=== PATIENT | female | born 1985 | race American Indian/Alaskan Native ===

== ENCOUNTER 2017-05-07 13:35 | Emergency (ER) | payer BC, OTHER ==
[2017-05-07 13:35] VITALS: BMI 33.0
[2017-05-07 14:10] VITALS: RESP 16; TEMP 98.9
--- NOTE | 2017-05-07 14:14 | ED PDOC ---
Arrival/HPI - General Chief Complaint: Lower Extremity Problem/Injury Time Seen by Provider: 05/07/17 14:13 Historian: Patient - History of Present Illness Narrative History of Present Illness (Text): 05/07/17 14:13 31 y/o female, no significant pmh, allergic to azithromycin, c/o bilateral lower extremity pain with painful rash x 1 week. Pt. stated that she recently recover from a viral URI which her symptoms resolved, been having bilateral lower extremity painful rash for the past 1 week, seen by pmd Dr. Olsen today and advised to come to the ER with possible acute DVT, no fever or chills, admits pain, no palpitation, no rash, no other medical or psychological complaints. Past Medical History - Provider Review Nursing Documentation Reviewed: Yes - Cardiac Hx Cardiac Disorders: No - Pulmonary Hx Respiratory Disorders: Yes Hx Bronchitis: Yes - Neurological Hx Neurological Disorder: No - HEENT Hx HEENT Disorder: No - Renal Hx Renal Disorder: No - Endocrine/Metabolic Hx Endocrine Disorders: No - Hematological/Oncological Hx Blood Disorders: No - Integumentary Hx Dermatological Disorder: No - Musculoskeletal/Rheumatological Hx Musculoskeletal Disorders: No - Gastrointestinal Hx Gastrointestinal Disorders: Yes Hx Gastroesophageal Reflux: Yes Hx Irritable Bowel: Yes - Genitourinary/Gynecological Hx Genitourinary Disorders: No - Psychiatric Hx Psychophysiologic Disorder: No Hx Substance Use: No - Surgical History Other/Comment: BACK SX, L KNEE - Suicidal Assessment Feels Threatened In Home Enviroment: No Family/Social History - Physician Review Nursing Documentation Reviewed: Yes Family/Social History: Unknown Family HX Smoking Status: Never Smoked Hx Alcohol Use: No Hx Substance Use: No Hx Substance Use Treatment: No Allergies/Home Meds Allergies/Adverse Reactions: Allergies azithromycin [From Zithromax] Allergy (Verified 05/07/17 14:02) RASH Review of Systems - Review of Systems Constitutional: absent: Fatigue, Fevers Eyes: absent: Vision Changes ENT: absent: Hearing Changes Respiratory: absent: SOB, Cough Cardiovascular: absent: Chest Pain Gastrointestinal: absent: Abdominal Pain, Nausea, Vomiting Skin: Rash, Skin Lesions. absent: Pruritis, Laceration, Abscess, Ulcer Neurological: absent: Headache, Dizziness Psychiatric: absent: Anxiety, Depression Physical Exam Vital Signs Reviewed: Yes Vital Signs Temp Pulse Resp BP Pulse Ox 05/07/17 17:15 82 16 115/68 100 05/07/17 14:03 98.9 F 106 H 16 125/80 95 Temperature: Afebrile Blood Pressure: Normal Pulse: Tachycardic Respiratory Rate: Normal Appearance: Positive for: Well-Appearing, Non-Toxic Pain Distress: Moderate Mental Status: Positive for: Alert and Oriented X 3 - Systems Exam Head: Present: Atraumatic, Normocephalic Pupils: Present: PERRL Extroacular Muscles: Present: EOMI Conjunctiva: Present: Normal Mouth: Present: Moist Mucous Membranes Neck: Present: Normal Range of Motion Respiratory/Chest: Present: Clear to Auscultation, Good Air Exchange. No: Respiratory Distress, Accessory Muscle Use Cardiovascular: Present: Regular Rate and Rhythm, Normal S1, S2. No: Murmurs Abdomen: Present: Normal Bowel Sounds. No: Tenderness, Distention, Peritoneal Signs, Rebound, Guarding Back: Present: Normal Inspection Upper Extremity: Present: Normal Inspection. No: Cyanosis, Edema Lower Extremity: Present: Normal Inspection. No: Edema Neurological: Present: GCS=15, CN II-XII Intact, Speech Normal Skin: Present: Warm, Dry, Rashes (bilateral calf region visible palpable tender purpura rash noted on the bilateral calf regions including mild dark red with approx. 1.5cm diameter each, no streaking, no ulcers. ), Normal Color Psychiatric: Present: Alert, Oriented x 3, Normal Insight, Normal Concentration Medical Decision Making ED Course and Treatment: 05/07/17 14:31 Differential Dx: cellulitis vs. vasculitis vs. auto immune disease vs. erythema nodusum -labs/esr -Bilateral lower extremitie venuous doppler -IVF/toradol/solumedrol -Observe and reassess 05/07/17 16:55 -Urine hcg is negative -Labs are non-significant with no elevation of wbc except CMP K 3.4 (potassium chloride 20meq po ordered), -Bilateral lower extremities venuous doppler: as per preliminary, no acute DVT -Pain decreased. Pt. has IBS with recurrent oral canker sore, likely inflammatory vs. auto immune. -I discussed with DR. Solis and Dr. Moncho olsen PCP, both evaluated the patient, agreed to do a trial of oral nsaid and steroid to see if the rash will resolved, Dr. Olsen he will see the patient tomorrow as well for grid maker referral. -Discharge home with Prednisone, naproxen, cane, follow up with your own pmd and rhematologist/manager of manufacturing within 2 days, return to the ER for any new or worsening signs or symptoms. - Lab Interpretations Lab Results: 05/07/17 14:35 05/07/17 14:35 Lab Results 05/07/17 14:35: WBC 6.9, RBC 4.04, Hgb 12.2, Hct 37.5, MCV 92.8, MCH 30.2, MCHC 32.5, RDW 14.2, Plt Count 309, MPV 9.4, Gran % 65.6, Lymph % (Auto) 29.3, [place] % (Auto) 4.8, Eos % (Auto) 0.3 L, Baso % (Auto) 0.0, Gran # 4.51, Lymph # (Auto ) 2.0, [place] # (Auto) 0.3, Eos # (Auto) 0.0, Baso # (Auto) 0.00, ESR 112 H 05/07/17 14:35: Sodium 144, Potassium 3.4 L, Chloride 104, Carbon Dioxide 28, Anion Gap 16, BUN 9, Creatinine 0.7, Est GFR ( Amer) > 60, Est GFR (Non- Af Amer) > 60, Random Glucose 99, Calcium 9.9, Total Bilirubin 0.5, AST 21, ALT 18, Alkaline Phosphatase 54, Total Creatine Kinase 74, NT-Pro-B Natriuret Pep 27.9, Total Protein 8.3, Albumin 4.2, Globulin 4.1, Albumin/Globulin Ratio 1.0 L - RAD Interpretation Radiology Orders: 05/07/17 14:26 DUPLEX LOWER EXTRM VEIN BILAT [US] Stat -Bilateral lower extremities venuous doppler: as per preliminary, no acute DVT All Around Gear Machine Operator: Radiologist - Medication Orders Current Medication Orders: Discontinued Medications Sodium Chloride (Sodium Chloride 0.9%) 1,000 mls @ 200 mls/hr IV .Q5H LUAN Last Admin: 05/07/17 14:48 Dose: 200 mls/hr eMAR Start Stop Document 05/07/17 14:48 SE (Rec: 05/07/17 14:48 SE [facility] [id number]) Intravenous Solution Start Date 05/07/17 Start Time 14:48 Ketorolac Tromethamine (Toradol) 30 mg IVP STAT STA Stop: 05/07/17 14:27 Last Admin: 05/07/17 14:48 Dose: 30 mg MAR Pain Assessment Document 05/07/17 14:48 SE (Rec: 05/07/17 14:48 [id number]) Pain Reassessment Is this a pain reassessment? No Sleep Is patient sleeping during reassessment? No Presence of Pain Presence of Pain Yes Pain Scale Used Pain Scale Used Numeric IVP Administration Document 05/07/17 14:48 SE (Rec: 05/07/17 14:48 [id number]) Charges for Administration # of IVP Administrations 1 Methylprednisolone (Solu-Medrol) 125 mg IVP STAT STA Stop: 05/07/17 14:27 Last Admin: 05/07/17 14:48 Dose: 125 mg IVP Administration Document 05/07/17 14:48 SE (Rec: 05/07/17 14:48 [id number]) Charges for Administration # of IVP Administrations 1 Potassium Chloride (K-Dur 20 Meq Er Tab) 20 meq PO STAT STA Stop: 05/07/17 15:10 Last Admin: 05/07/17 16:50 Dose: 20 meq - PA / DISPATCHER CHIEF OIL / Resident Statement / has reviewed & agrees with the documentation as recorded. Disposition/Present on Arrival - Present on Arrival Any Indicators Present on Arrival: No History of DVT/PE: No History of Uncontrolled Diabetes: No Urinary Catheter: No History of Decub. Ulcer: No History Surgical Site Infection Following: None - Disposition Have Diagnosis and Disposition been Completed?: Yes Diagnosis: Erythematous skin nodule Disposition: HOME/ ROUTINE Disposition Time: 16:17 Patient Plan: Discharge Condition: GOOD Additional Instructions: -Discharge home with Prednisone, naproxen, cane, follow up with your own pmd and rhematologist/manager of manufacturing within 2 days, return to the ER for any new or worsening signs or symptoms. Prescriptions: Naproxen 500 mg PO BID #26 tab Prednisone 50 mg PO DAILY #5 tab Referrals: Fede Navarro MD [Staff Provider] - Follow up with primary Tommy Gee MD [Medical Doctor] - Follow up with primary Moncho Olsen DO [Family Provider] - Follow up with primary Forms: WORK NOTE
[2017-05-07] MEDS ORDERED: Sodium Chloride 0.9% 1,000 ML IV SCH (14:30)
[2017-05-07 14:55] LABS: EOS % 0.3 % (1.5-5.0); GRAN # 4.51 (1.4-6.5); GRAN % 65.6 % (50.0-68.0); HEMOGLOBIN 12.2 g/dL (12.0-16.0); LYMPH % 29.3 % (22.0-35.0); MEAN CELL VOLUME 92.8 fl (80.0-105.0); MEAN CORPUSCULAR HEMOGLOBIN 30.2 pg (25.0-35.0); MEAN CORPUSCULAR HGB CONC 32.5 g/dl (31.0-37.0); MEAN PLATELET VOLUME 9.4 fl (7.0-11.0); MONO # 0.3 (0.1-0.6); MONO % 4.8 % (1.0-6.0); RBC 4.04 10^6/uL (3.5-6.1); RED CELL DISTRIBUTION WIDTH 14.2 % (11.5-14.5); WHITE BLOOD COUNT 6.9 10^3/ul (4.5-11.0)
[2017-05-07 15:05] LABS: ALBUMIN 4.2 g/dL (3.0-4.8); ALT/SGPT 18 U/L (7-56); AST/SGOT 21 U/L (14-36); BLOOD UREA NITROGEN 9 mg/dL (7-21); CALCIUM 9.9 mg/dL (8.4-10.5); GFR AFRICAN-AMERICAN > 60; GFR NON-AFRICAN AMERICAN > 60
[2017-05-07] MEDS ORDERED: Potassium Chloride 20 mEq ER Tab PO STA (15:09)
[2017-05-07 15:13] LABS: B-TYPE NATRIURETIC PEPTIDE 27.9 pg/mL (0-450)
--- NOTE | 2017-05-07 17:06 | US ---
PROCEDURE: Bilateral lower extremity venous duplex Doppler. HISTORY: Bilateral lower extremity pain COMPARISON: None available. TECHNIQUE: Bilateral common femoral, superficial femoral, popliteal and posterior tibial veins were evaluated. Flow was assessed with color Doppler, compressibility, assessment of phasic flow and augmentation response. FINDINGS: COMMON FEMORAL VEIN: Right CFV: Normal direction of flow, compressibility and augmentation response. Left CFV: Normal direction of flow, compressibility and augmentation response. SUPERFICIAL FEMORAL VEIN: Right SFV: Normal direction of flow, compressibility and augmentation response. Left SFV: Normal direction of flow, compressibility and augmentation response. POPLITEAL VEIN: Right Popliteal: Normal direction of flow, compressibility and augmentation response. Left Popliteal: Normal direction of flow, compressibility and augmentation response. POSTERIOR TIBIAL VEIN: Right PTV: Normal direction of flow, compressibility and augmentation response. Left PTV: Normal direction of flow, compressibility and augmentation response. OTHER FINDINGS: None. IMPRESSION: No evidence of deep venous thrombosis.
[2017-05-07 17:15] VITALS: BP 115/68; PULSE 82; O2SAT 100
== END 2017-05-07 17:15 | disposition home or self-care (01) ==
LOC: ED 13:35
DX: L53.9 Erythematous condition, unspecified (principal)
CPT/HCPCS: 80053; 82550; 83880; 85025; 85651; 93970; 96374; 96375; 99284; J1885; J2930; J7040